=== PATIENT | female | born 1950 | race Caucasian/White ===

== ENCOUNTER 2018-05-04 08:26 | Inpatient (IN) | payer OTHER, MEDICARE ==
[2018-05-04] MEDS: TRANEXAMIC ACID 1,000 MG in D5W 100 ML AT INCISION X1 IVPB (06:30)
[2018-05-04] MEDS: TRANEXAMIC ACID 1,000 MG in D5W 100 ML AT CLOSURE X1 IVPB (06:30)
[2018-05-04] MEDS: CEFAZOLIN 2 GM/50 ML (PMX) 50 ML (FOR WT < 120 KG) IVPB (06:30)
[~2018-05-04 08:26] MED LIST: CEFAZOLIN 1 GM INJ
[2018-05-04] MEDS ORDERED: NA PHOSPHATE/BIPHOS 133 ML ENEMA PR (11:30)
[2018-05-04] MEDS ORDERED: DIPHENHYDRAMINE 50 MG INJ IM (11:30)
[2018-05-04] MEDS ORDERED: NALOXONE (0.4 MG/ML) INJ IV (11:30)
[2018-05-04] MEDS ORDERED: oxyCODONE 5 MG TAB PO ×2 (11:30)
[2018-05-04] MEDS ORDERED: BETHANECHOL 25 MG TAB PO (11:30)
[2018-05-04] MEDS ORDERED: BISACODYL 10 MG SUPP PR (11:30)
[2018-05-04] MEDS ORDERED: MAGNESIUM HYDROXIDE 30ML CUP PO (11:30)
[2018-05-04] MEDS: ONDANSETRON 4 MG INJ IV ×3 (11:30→23:33)
[2018-05-04] MEDS: SOD CHLORIDE 0.9% 1,000 ML IV (13:00)
[2018-05-04] MEDS ORDERED: MIDAZOLAM 1 MG/ML 2 ML INJ (14:05)
[2018-05-04] MEDS ORDERED: METOCLOPRAMIDE 10 MG INJ (14:05)
[2018-05-04] MEDS ORDERED: FENTAnyl 50 MCG/ML VIAL (14:07)
[2018-05-04] MEDS ORDERED: BUPIVACAINE 0.75%/DEXT (SPINAL) 2 ML INJ (14:07)
[2018-05-04] MEDS ORDERED: ACETAMINOPHEN 1000MG/100ML IV 100 ML (14:36)
[2018-05-04] MEDS ORDERED: ONDANSETRON 4 MG INJ (14:36)
[2018-05-04] MEDS ORDERED: EPHEDrine 25 MG/5 ML SYG (14:36)
[2018-05-04] MEDS ORDERED: PROPOFOL 20 ML (14:36)
[2018-05-04] MEDS ORDERED: ROPIVACAINE 0.2% 20 ML VIAL (14:51)
[2018-05-04] MEDS: POLYMYXIN B 500000 UNIT INJ (15:08)
[2018-05-04] MEDS: BACITRACIN 50000 UNITS INJ (15:24)
[2018-05-04] MEDS: CEFAZOLIN 1 GM/50 ML (PMX) 50 ML IVPB ×2 (16:50→22:00)
[2018-05-04] MEDS: DOCUSATE SODIUM 100 MG CAP PO (16:51)
[2018-05-04] MEDS: ASPIRIN (EC) 325 MG TAB PO (16:51)
[2018-05-04] MEDS ORDERED: hydrALAzine 20 MG INJ (17:26)
[2018-05-04] MEDS: hydrALAzine 20 MG INJ IV ×2 (17:35→18:01)
[2018-05-04] MEDS: oxyCODONE 5 MG TAB PO (20:46)
[2018-05-04 23:43] LABS: ANION GAP 7 (8-16); BLOOD UREA NITROGEN 17 mg/dl (7-20); CALCIUM 8.5 mg/dl (8.4-10.2); CARBON DIOXIDE 32 mmol/L (21-31); CHLORIDE 106 mmol/L (97-110); CREATININE 0.81 mg/dl (0.44-1.00); GLUCOSE 110 mg/dl (70-220); MAGNESIUM 1.6 mg/dl (1.7-2.5); PHOSPHORUS 4.6 mg/dl (2.5-4.9); POTASSIUM 3.5 mmol/L (3.5-5.1); SODIUM 141 mmol/L (135-144)
[2018-05-05] MEDS: oxyCODONE 5 MG TAB PO ×6 (00:44→19:30)
[2018-05-05] MEDS: MAGNESIUM SULFATE 2 GM/50 ML 50 ML IVPB (00:56)
[2018-05-05] MEDS: SOD CHLORIDE 0.9% 1,000 ML IV ×2 (01:06→05:30)
[2018-05-05 05:35] LABS: ADD MAN DIFF? NO
[2018-05-05 05:39] LABS: WHITE BLOOD COUNT 9.1 10^3/ul (4.8-10.8)
[2018-05-05 05:39] LABS: BASOPHILS % 0.3 % (0.0-2.0); EOSINOPHILS # 0.1 10^3/ul (0.0-0.5); EOSINOPHILS % 1.2 % (0.0-7.0); HEMATOCRIT 31.7 % (37.0-47.0); HEMOGLOBIN 9.9 g/dl (12.0-16.0); LYMPHOCYTES # 1.3 10^3/ul (0.8-2.9); LYMPHOCYTES % 14.5 % (15.0-51.0); MEAN CORPUSCULAR HEMOGLOBIN 27.2 pg (29.0-33.0); MEAN CORPUSCULAR HGB CONC 31.2 g/dl (32.0-37.0); MEAN CORPUSCULAR VOLUME 87.1 fl (82.0-101.0); MEAN PLATELET VOLUME 11.3 fl (7.4-10.4); MONOCYTE # 1.1 10^3/ul (0.3-0.9); MONOCYTES % 11.5 % (0.0-11.0); NEUTROPHIL # 6.6 10^3/ul (1.6-7.5); NEUTROPHILS % 72.3 % (39.0-77.0); PLATELET COUNT 210 10^3/UL (140-415); RED BLOOD COUNT 3.64 10^6/ul (4.20-5.40)
[2018-05-05] MEDS: CEFAZOLIN 1 GM/50 ML (PMX) 50 ML IVPB (05:49)
[2018-05-05] MEDS: ONDANSETRON 4 MG INJ IV ×2 (05:49→14:50)
[2018-05-05 06:25] LABS: ANION GAP 9 (8-16); BLOOD UREA NITROGEN 16 mg/dl (7-20); CALCIUM 8.4 mg/dl (8.4-10.2); CARBON DIOXIDE 30 mmol/L (21-31); CHLORIDE 104 mmol/L (97-110); CREATININE 0.76 mg/dl (0.44-1.00); GLUCOSE 123 mg/dl (70-220); POTASSIUM 3.5 mmol/L (3.5-5.1); SODIUM 139 mmol/L (135-144)
[2018-05-05] MEDS: SENNA/DOCUSATE NA (8.6MG/50MG) TAB PO (08:53)
[2018-05-05] MEDS: CELECOXIB 100 MG CAP PO ×2 (08:53→21:04)
[2018-05-05] MEDS: FERROUS FUMARATE (SR) TAB PO ×2 (08:53→21:03)
[2018-05-05] MEDS: DOCUSATE SODIUM 100 MG CAP PO ×2 (08:53→21:03)
[2018-05-05] MEDS: LOSARTAN 50 MG TAB PO (08:54)
[2018-05-05] MEDS: ASPIRIN (EC) 325 MG TAB PO (08:54)
[2018-05-05] MEDS: HYDROCHLOROTHIAZIDE 12.5 MG CAP PO (08:54)
[2018-05-05] MEDS: GABAPENTIN 100 MG CAP PO ×2 (08:54→21:03)
[2018-05-06] MEDS: SOD CHLORIDE 0.9% 1,000 ML IV ×2 (02:30→15:00)
[2018-05-06] MEDS: oxyCODONE 5 MG TAB PO ×2 (02:57→10:06)
[2018-05-06 05:33] LABS: ADD MAN DIFF? NO
[2018-05-06 05:43] LABS: ABNORMAL IP MESSAGE 1; BASOPHILS % 0.2 % (0.0-2.0); EOSINOPHILS # 0.1 10^3/ul (0.0-0.5); EOSINOPHILS % 1.1 % (0.0-7.0); HEMATOCRIT 31.1 % (37.0-47.0); HEMOGLOBIN 9.6 g/dl (12.0-16.0); LYMPHOCYTES # 1.7 10^3/ul (0.8-2.9); LYMPHOCYTES % 20.1 % (15.0-51.0); MEAN CORPUSCULAR HEMOGLOBIN 27.2 pg (29.0-33.0); MEAN CORPUSCULAR HGB CONC 30.9 g/dl (32.0-37.0); MEAN CORPUSCULAR VOLUME 88.1 fl (82.0-101.0); MONOCYTE # 1.5 10^3/ul (0.3-0.9); MONOCYTES % 18.4 % (0.0-11.0); NEUTROPHIL # 4.9 10^3/ul (1.6-7.5); PLATELET COUNT 211 10^3/UL (140-415); RED BLOOD COUNT 3.53 10^6/ul (4.20-5.40); RED CELL DISTRIBUTION WIDTH 15.1 % (11.5-14.5)
[2018-05-06 05:43] LABS: WHITE BLOOD COUNT 8.2 10^3/ul (4.8-10.8)
[2018-05-06 05:59] LABS: POSITIVE DIFF @See below
[2018-05-06] MEDS: PANTOPRAZOLE (EC) 40 MG TAB PO (06:04)
[2018-05-06 06:24] LABS: ANION GAP 8 (8-16); BLOOD UREA NITROGEN 13 mg/dl (7-20); CALCIUM 8.6 mg/dl (8.4-10.2); CARBON DIOXIDE 32 mmol/L (21-31); CHLORIDE 101 mmol/L (97-110); CREATININE 0.83 mg/dl (0.44-1.00); GLUCOSE 107 mg/dl (70-220); POTASSIUM 4.1 mmol/L (3.5-5.1); SODIUM 137 mmol/L (135-144)
[2018-05-06] MEDS: DOCUSATE SODIUM 100 MG CAP PO (09:00)
[2018-05-06] MEDS: HYDROCHLOROTHIAZIDE 12.5 MG CAP PO (10:04)
[2018-05-06] MEDS: LOSARTAN 50 MG TAB PO (10:05)
[2018-05-06] MEDS: FERROUS FUMARATE (SR) TAB PO (10:05)
[2018-05-06] MEDS: CELECOXIB 100 MG CAP PO (10:05)
[2018-05-06] MEDS: ASPIRIN (EC) 325 MG TAB PO (10:11)
[2018-05-06] MEDS: GABAPENTIN 100 MG CAP PO (10:11)
== END 2018-05-06 19:45 | disposition home health service (06) | DRG 470 ==
LOC: REC 08:26 → MS1 18:30
PROC: 0SRC0J9 Replacement of Right Knee Joint with Synthetic Substitute, Cemented, Open Approach (ICD-10-PCS; principal; 2018-05-04 14:00)
DX: M17.11 Unilateral primary osteoarthritis, right knee (principal); E66.01 Morbid (severe) obesity due to excess calories; Z68.34 Body mass index [BMI] 34.0-34.9, adult; I10 Essential (primary) hypertension; G62.9 Polyneuropathy, unspecified
CPT/HCPCS: 73560; 80048; 83735; 84100; 85025; 86850; 86900; 86901; 87081; 88304; 88311; 93005; 97110; 97116; 97161; 97167; 97530